=== PATIENT | female | born 1975 | race Caucasian/White ===

== ENCOUNTER 2025-01-26 23:28 | Emergency (ER) | payer BC ==
[~2025-01-26] VITALS: Ht 160 cm; Wt 66.9 kg
[2025-01-26] MEDS ORDERED: MORPHINE SULFATE 4 MG/ML VIAL IV ONE (23:45)
[2025-01-26] MEDS ORDERED: SODIUM CHLORIDE 0.9% 1,000 ML IV ONE (23:45)
[2025-01-26] MEDS ORDERED: KETOROLAC TROMETHAMINE 30 MG/ML VIAL IV ONE (23:45)
[2025-01-26] MEDS ORDERED: PROCHLORPERAZINE EDISYLATE 10 MG/2 ML VIAL IV ONE (23:45)
[2025-01-26 23:53] LABS: BASOPHILS 0.7 % (0-2); EOSINOPHILS 3.5 % (0-6); HEMATOCRIT 39.4 % (35.0-50.0); HEMOGLOBIN 13.3 g/dL (12.0-18.0); LYMPHOCYTES 22.5 % (24-44); MCH 31.5 (27-36); MCHC 33.7 g/dl (30-36); MCV 93.6 fl (81-99); MONOCYTES 8.3 % (0-12); PLATELET COUNT 172 K/uL (140-440); RBC 4.21 M/ul (4.3-5.7); RDW 11.9 (10.5-15.0)
[2025-01-27 00:11] LABS: ALBUMIN 3.8 g/dL (3.4-5.0); ALBUMIN/GLOBULIN RATIO 1.19 (1.1-2.4); ANION GAP 12.3 (7-21); BILIRUBIN, TOTAL 0.4 mg/dL (0.2-1.0); BUN/CREATININE RATIO 18.18 (6.0-28.6); CALCIUM 9.2 mg/dL (8.5-10.1); CREATININE, SERUM 0.88 mg/dL (0.55-1.02); POTASSIUM 4.3 mmol/L (3.5-5.1)
[2025-01-27] MEDS ORDERED: FLOMAX0.4 MG PO (02:23)
[2025-01-27] MEDS ORDERED: PERCOCET 5-3251 EACH PO (02:23)
[2025-01-27] MEDS ORDERED: ONDANSETRON ODT8 MG PO (02:23)
[2025-01-27] MEDS ORDERED: OXYCODONE/ACETAMINOPHEN 1 TAB HOME.PACK PO ONE (02:30)
[2025-01-27] MEDS ORDERED: ONDANSETRON 4 MG HOME.PACK SL ONE (02:30)
[2025-01-27] MEDS ORDERED: TAMSULOSIN HCL 0.4 MG CAP PO ONE (02:30)
[2025-01-27 03:05] LABS: BILIRUBIN, URINE NEGATIVE (negative); BLOOD/HGB, URINE NEGATIVE (Negative); KETONE, URINE TRACE (Negative); LEUK ESTERASE, URINE NEGATIVE (negative); NITRITE, URINE NEGATIVE (negative)
[2025-01-27 03:10] VITALS: BP 113/64
== END 2025-01-27 03:17 | disposition home or self-care (01) ==
LOC: ED 23:28
PROVIDERS: Family Medicine
DX: N13.2 Hydronephrosis with renal and ureteral calculous obstruction (principal)
CPT/HCPCS: 36415; 74176; 80053; 81003; 83690; 84703; 85025; 96374; 96375; 99284-25; A9270; J0780; J1885; J2270; J7030